=== PATIENT | female | born 1985 | race Hispanic/Latino ===

== ENCOUNTER 2019-07-16 18:46 | Emergency (ER) | payer OTHER ==
[~2019-07-16] VITALS: Ht 152.4 cm; Wt 90.0 kg
[2019-07-16 21:00] VITALS: BP 139/84
== END 2019-07-16 21:00 | disposition home or self-care (01) ==
LOC: ED 18:46
DX: S89.91XA Unspecified injury of right lower leg, initial encounter (principal); F17.210 Nicotine dependence, cigarettes, uncomplicated; X50.0XXA Overexertion from strenuous movement or load, initial encounter; Y93.68 Activity, volleyball (beach) (court); Y92.832 Beach as the place of occurrence of the external cause
CPT/HCPCS: L1830

== ENCOUNTER 2021-01-18 11:29 | Emergency (ER) | payer OTHER ==
[~2021-01-18] VITALS: Ht 152.4 cm; Wt 81.8 kg
[2021-01-18] MEDS ORDERED: CYCLOBENZAPRINE10 MG PO (12:43)
[2021-01-18] MEDS ORDERED: MEDDOSEPAK PO (12:43)
[2021-01-18 13:18] VITALS: BP 154/88
== END 2021-01-18 13:18 | disposition home or self-care (01) ==
LOC: ED 11:29
DX: S46.911A Strain of unspecified muscle, fascia and tendon at shoulder and upper arm level, right arm, initial encounter (principal); F17.210 Nicotine dependence, cigarettes, uncomplicated; X50.3XXA Overexertion from repetitive movements, initial encounter; Y93.89 Activity, other specified

== ENCOUNTER 2022-02-23 21:12 | Emergency (ER) | payer OTHER ==
[2022-02-23] VITALS (12 sets, daily range): BP systolic 136–215; BP diastolic 93–124
[~2022-02-23] VITALS: Ht 152.4 cm; Wt 87.2 kg
[~2022-02-23 21:12] MED LIST: CYCLOBENZAPRINE10 MG PO; MEDDOSEPAK PO
[2022-02-23 22:07] LABS: HEMATOCRIT 35.4 % (37.0-47.0); HEMOGLOBIN 11.2 g/dl (12.0-16.0); IMMATURE GRANULOCYTES 0.2 % (0.0-5.0); MEAN CORPUSCULAR HGB 25.7 pG CALC (26.0-32.0); MEAN CORPUSCULAR HGB CONC 31.6 g/dL CAL (32.0-36.0); NEUT# 7.23 thou/uL (2.00-7.15); RED BLOOD COUNT 4.36 mill/uL (4.20-5.60); RED CELL DISTRI WIDTH 14.8 % (11.5-15.5)
[2022-02-23 22:09] LABS: MEAN CELL VOLUME 81.2 fL CALC (80.0-100.0)
[2022-02-23 22:21] LABS: D-DIMER 0.4 mg/L (0.19-0.60)
[2022-02-23 22:22] LABS: ALKALINE PHOSPHATASE 90 u/l (38-126); AMYLASE 62 u/l (30-110); ANION GAP 11 (6-22 (CALC)); BUN 8 mg/dL (7-17); BUN/CREATININE RATIO 11 (12-20 (CALC)); CARBON DIOXIDE 26 mmol/l (22-30); CHLORIDE 104 mmol/l (95-108); CREATININE 0.7 mg/dL (0.5-1.0); GFR > 60 ML/MIN (>=60 (CALC)); GFR FOR AFR.AMER. > 60 ML/MIN (>=60 (CALC)); LIPASE 99 u/l (23-300); POTASSIUM 3.4 mmol/l (3.5-5.1); SODIUM 137 mmol/l (137-146)
[2022-02-23 22:26] LABS: ACT PARTIAL THROMBO TIME 22.8 SECONDS (20.0-32.5); INTERNATIONAL NORMALIZED RATIO 0.9 RATIO (0.7-1.3); PROTHROMBIN TIME 9.4 SECONDS (9.0-12.5)
[2022-02-23 22:34] LABS: ALBUMIN 4.5 g/dL (3.2-5.0); BILIRUBIN, TOTAL 0.3 mg/dL (0.0-1.4); MYOGLOBIN 29 ng/mL (0 - 62); SGOT/AST 29 u/l (14-36); TOTAL PROTEIN 7.7 g/dL (6.3-8.2)
[2022-02-24] VITALS: BP 132/89
[2022-02-24 00:15] VITALS: BP 137/94
[2022-02-24 00:37] LABS: URINE BILIRUBIN - DIPSTICK NEGATIVE (NEGATIVE); URINE BLOOD DIPSTICK NEGATIVE (NEGATIVE); URINE COLOR YELLOW; URINE GLUCOSE - DIPSTICK NEGATIVE (NEGATIVE); URINE KETONE NEGATIVE (NEGATIVE); URINE LEUK ESTERASE NEGATIVE (NEGATIVE); URINE NITRITE - DIPSTICK NEGATIVE (Negative); URINE PROTEIN - DIPSTICK TRACE mg/dL (NEG-TRACE); URINE UROBILINOGEN - DIPSTICK 0.2 E.U./dL (0.2)
[2022-02-24] MEDS ORDERED: LISINOP/HCTZ1 TA2 PO (00:43)
[2022-02-24 00:56] VITALS: BP 136/78
== END 2022-02-24 01:00 | disposition home or self-care (01) ==
LOC: ED 21:12
PROVIDERS: Family Medicine
DX: I10 Essential (primary) hypertension (principal); R07.89 Other chest pain; T44.8X6A Underdosing of centrally-acting and adrenergic-neuron-blocking agents, initial encounter; F17.200 Nicotine dependence, unspecified, uncomplicated; Z91.128 Patient's intentional underdosing of medication regimen for other reason

== ENCOUNTER 2022-05-21 12:42 | Emergency (ER) | payer MEDICAID ==
[~2022-05-21] VITALS: Ht 152.4 cm; Wt 86.6 kg
[~2022-05-21 12:42] MED LIST changes: +LISINOP/HCTZ1 TA2 PO
[2022-05-21 12:55] VITALS: BP 154/98
[2022-05-21 13:00] VITALS: BP 146/96
[2022-05-21 13:30] VITALS: BP 149/90
[2022-05-21 13:35] LABS: HEMATOCRIT 36.1 % (37.0-47.0); HEMOGLOBIN 11.5 g/dl (12.0-16.0); IMMATURE GRANULOCYTES 0.2 % (0.0-5.0); MEAN CELL VOLUME 84.3 fL CALC (80.0-100.0); MEAN CORPUSCULAR HGB 26.9 pG CALC (26.0-32.0); MEAN CORPUSCULAR HGB CONC 31.9 g/dL CAL (32.0-36.0); NEUT# 6.76 thou/uL (2.00-7.15); RED BLOOD COUNT 4.28 mill/uL (4.20-5.60); RED CELL DISTRI WIDTH 14.9 % (11.5-15.5)
[2022-05-21 13:48] LABS: ALBUMIN 4.2 g/dL (3.2-5.0); ALKALINE PHOSPHATASE 77 u/l (38-126); ANION GAP 11 (6-22 (CALC)); BILIRUBIN, TOTAL 0.3 mg/dL (0.0-1.4); BUN 8 mg/dL (7-17); BUN/CREATININE RATIO 12 (12-20 (CALC)); CARBON DIOXIDE 28 mmol/l (22-30); CHLORIDE 100 mmol/l (95-108); CREATININE 0.7 mg/dL (0.5-1.0); GFR FOR AFR.AMER. > 60 ML/MIN (>=60 (CALC)); GFR OTHER RACES > 60 ML/MIN (>=60 (CALC)); POTASSIUM 3.5 mmol/l (3.5-5.1); SGOT/AST 18 u/l (14-36); SODIUM 135 mmol/l (137-146); TOTAL PROTEIN 7.2 g/dL (6.3-8.2)
[2022-05-21 14:00] VITALS: BP 143/78
[2022-05-21] MEDS ORDERED: FIORICET PO (15:19)
[2022-05-21 15:38] VITALS: BP 143/78
== END 2022-05-21 16:00 | disposition home or self-care (01) ==
LOC: ED 12:42
PROVIDERS: Nurse Practitioner
DX: G43.909 Migraine, unspecified, not intractable, without status migrainosus (principal); I10 Essential (primary) hypertension; F17.200 Nicotine dependence, unspecified, uncomplicated